=== PATIENT | female | born 1960 | race Two or more races ===

== ENCOUNTER 2016-08-22 17:35 | Emergency (ER) | payer OTHER ==
--- NOTE | 2016-08-22 20:24 | RAD ---
INDICATION: Mandibular injury TECHNIQUE: 4 views are submitted. FINDINGS: No mandibular fracture is seen. The condyles appear seated. There is shielding of the lower one half of the mandible on the Juan view. One oblique view is mildly suboptimal this image was repeated. The soft tissues are normal. IMPRESSION: NO PLAIN RADIOGRAPHIC EVIDENCE OF MANDIBULAR FRACTURE ON THE VIEWS SUBMITTED.
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
[2016-08-22] MEDS ORDERED: Naproxen TAB* 250 MG PO ONE (20:30)
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
[2016-08-22 21:26] VITALS: BP 144/76
== END 2016-08-22 21:24 | disposition home or self-care (01) ==
LOC: ED 17:35
DX: M26.602 Left temporomandibular joint disorder, unspecified (principal)
CPT/HCPCS: 70110; 71010; 99283; A9270-GY

== ENCOUNTER 2016-08-25 11:39 | Emergency (ER) | payer OTHER ==
[2016-08-25 12:25] VITALS: BP 151/98
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
== END 2016-08-25 15:27 | disposition home or self-care (01) ==
LOC: UCEAST 11:39
DX: S20.219S Contusion of unspecified front wall of thorax, sequela (principal); S20.02XS Contusion of left breast, sequela; S20.01XS Contusion of right breast, sequela; S50.1 Contusion of forearm; S80.02XS Contusion of left knee, sequela; S80.01XS Contusion of right knee, sequela; V43.53XS Car driver injured in collision with pick-up truck in traffic accident, sequela; M94.0 Chondrocostal junction syndrome [Tietze]; M26.622 Arthralgia of left temporomandibular joint; J34.89 Other specified disorders of nose and nasal sinuses; Z88.1 Allergy status to other antibiotic agents
CPT/HCPCS: 99213; G0463

== ENCOUNTER 2018-02-20 16:53 | Emergency (ER) | payer BC ==
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
[2018-02-20 17:43] LABS: Hematocrit 41 % (35-47); Mean Corpuscular HGB Conc 34 g/dl (31-36); Mean Corpuscular Hemoglobin 30 pg (27-31); Mean Corpuscular Volume 86 fL (80-97); Mean Platelet Volume 7.4 um3 (7.4-10.4); Platelet Count 379 10^3/ul (150-450); Red Blood Count 4.72 10^6/ul (4.00-5.40); Red Cell Distribution Width 13 % (10.5-15); White Blood Count 9.4 10^3/ul (3.5-10.8)
--- OUTSIDE RECORDS SUMMARY | 2018-02-20 18:20 | XMS REPORT ---
:1960 External Reference #:[id number] Author Organization [facility] Address [address] [place] [address] [place] [address] Phone [phone] Care Team Providers Name Role Phone Flor Waters FNP Primary Care Physician Unavailable Payers Type Date Identification Numbers Payment Provider Subscriber Workers Compensation Expires: Policy Number: Aniya Bartlett [id number] Group Number: [id number] [address] [address] PayID: [id number] [place] [address] Medigap Part B Effective: 2017 Policy Number: BS Facets Keri Bartlett [id number] PayID: [id number] [address] [address] [place] [address] Problems Date Description Provider Status Onset: 01/22/2018 Cerebral artery occlusion Dylon Moyer M.D. Active Onset: 01/22/2018 Neck pain Dylon Moyer M.D. Active Family History Date Family Member(s) Problem(s) Comments General Diabetes General Heart Disease General Hypertension General Cancer General Arthritis Mother Angina STENT PLACED Social History Type Date Description Comments Lives With Children Occupation Disabled ETOH Use Denies alcohol use Smoking Patient has never smoked Exercise Type/Frequency Exercises rarely Allergies, Adverse Reactions, Alerts Date Description Reaction Status Severity Comments 01/08/2018 Adhesive active 01/08/2018 Latex active 01/08/2018 Antibiotics active 01/08/2018 Narcotics active Medications Medication Date Status Form Strength Qnty SIG Indications Ordering Provider Benadryl Active Capsules 25mg 2 caps 1 Unknown Allergy 000 hour prior to procedure Advil 0 Active Capsules 200mg as needed Unknown 000 Colace Active Capsules 100mg 1 tab by Unknown 000 mouth 2-3 times a day as needed Vital Signs Date Vital Result Comment 01/22/2018 Height 62 inches 5'2" Weight 156.00 lb BP Systolic Sitting 130 mmHg BP Diastolic Sitting 80 mmHg Pain Level 130 90 BMI (Body Mass Index) 28.5 kg/m2 01/08/2018 Height 62 inches 5'2" Weight 156.00 lb Heart Rate 96 /min BP Systolic Sitting 144 mmHg BP Diastolic Sitting 88 mmHg Respiratory Rate 16 /min Body Temperature 97.8 F BMI (Body Mass Index) 28.5 kg/m2 Results Description No Information Procedures Description No Information Encounters Type Date Location Provider CPT E/M Dx Office Visit 01/08/2018 9:00a [facility] M.D. 72998 R53.1 C.M.A. M54.5 M25.551 Plan of Care Future Appointment(s):02/26/2018 3:30 pm - Breezy Early MD at [facility] [id number]/22/2018 - Dylon Moyer M.D.M54.2 CervicalgiaNew Xrays:MRI Cervical Spine WoI63.9 Cerebral infarction, unspecifiedNew Xrays:MRI Brain W/OFollow up:After diagnostic study
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
[2018-02-20] MEDS ORDERED: ALPRAZolam TAB* 0.25 MG PO ONE (18:46)
[2018-02-20] MEDS ORDERED: Lisinopril TAB* 5 MG PO ONE (18:53)
[2018-02-20 19:10] VITALS: BP 00/0
== END 2018-02-20 19:08 | disposition left against medical advice (07) ==
LOC: ED 16:53
DX: R53.1 Weakness (principal); F32.9 Major depressive disorder, single episode, unspecified; F41.9 Anxiety disorder, unspecified; Z91.81 History of falling; Z53.21 Procedure and treatment not carried out due to patient leaving prior to being seen by health care provider
CPT/HCPCS: 36415; 80053; 85027; 99283; A9270-GY